=== PATIENT | male | born 1955 | race Two or more races ===

== ENCOUNTER 2019-11-13 17:18 | Emergency (ER) | payer OTHER ==
[2019-11-13 17:34] VITALS: BMI 25.0
--- NOTE | 2019-11-13 19:02 | PDOC ---
History of Present Illness - General Chief Complaint: Migraine Headache Stated Complaint: LEFT SIDE PAIN TO FACE/BLURRED VISION History Source: Patient Exam Limitations: No Limitations - History of Present Illness Initial Comments: 11/13/19 18:54 Patient is a 64-year-old male with history of chest pain, HLD complaining of headache x 1 week. States the pain started after taking the medication isosorbide for which he was precribed for his chest pain. Pain is on the left temporal area 6/10, throbbing, which radiates to the side of his face, with associated photophobia, no nausea vomiting. No history of headache. PMD: Dr. Cuadra PMHX: as above PSOCHX: occ wine, neg cig, no drug ALL: NKDA GENERAL/CONSTITUTIONAL: [No fever or chills. No weakness. No weight change.] HEAD, EYES, EARS, NOSE AND THROAT: [No change in vision. No ear pain or discharge. No sore throat.] CARDIOVASCULAR: [No chest pain or shortness of breath.] RESPIRATORY: [No cough, wheezing, or hemoptysis.] GASTROINTESTINAL: [No nausea, vomiting, diarrhea or constipation. No rectal bleeding.] GENITOURINARY: [No dysuria, frequency, or change in urination.] MUSCULOSKELETAL: [No joint or muscle swelling or pain. No neck or back pain.] SKIN AND BREASTS: [No rash or easy bruising.] NEUROLOGIC: [(+) headache, (-) vertigo, loss of consciousness, or loss of sensation.] PSYCHIATRIC: [No depression or anxiety.] ENDOCRINE: [No increased thirst. No abnormal weight change.] HEMATOLOGIC/LYMPHATIC: [No anemia, easy bleeding, or history of blood clots.] ALLERGIC/IMMUNOLOGIC: [No hives or skin allergy. No latex allergy.] GENERAL: [The patient is awake, alert, and fully oriented, in no acute distress. ] HEAD: [Normal with no signs of trauma.] EYES: [Pupils equal, round and reactive to light, extraocular movements intact, sclera anicteric, conjunctiva clear.] ENT: [Ears normal, nares patent, oropharynx clear without exudates. Moist mucous membranes.] NECK: [Normal range of motion, supple without lymphadenopathy, JVD, or masses.] LUNGS: [Breath sounds equal, clear to auscultation bilaterally. No wheezes, and no crackles.] HEART: [Regular rate and rhythm, normal S1 and S2 without murmur, rub.] ABDOMEN: [Soft, nontender, normoactive bowel sounds. No guarding, no rebound. No masses.] EXTREMITIES: [Normal range of motion, no edema. No clubbing or cyanosis. No cords, erythema, or tenderness.] NEUROLOGICAL: [Cranial nerves II through XII grossly intact. Normal speech, normal gait, (-) nystagmus.] PSYCH: [Normal mood, normal affect.] SKIN: [Warm, Dry, normal turgor, no rashes or lesions noted.] Past History - Past Medical History Allergies/Adverse Reactions: Allergies Allergy/AdvReac Type Severity Reaction Status Date / Time No Known Allergies Allergy Verified 11/13/19 17:30 Home Medications: Ambulatory Orders Isosorbide Mononitrate [Imdur -] 30 mg PO DAILY 11/13/19 Nitroglycerin Sublingual [Nitrostat -] 0.4 mg SL PRN 11/13/19 - Psycho Social/Smoking Cessation Hx Smoking History: Never smoked Hx Alcohol Use: No Drug/Substance Use Hx: No *Physical Exam - Vital Signs Last Vital Signs Temp Pulse Resp BP Pulse Ox 98 F 78 16 114/76 97 11/13/19 17:31 11/13/19 17:31 11/13/19 17:31 11/13/19 17:31 11/13/19 17:31 Medical Decision Making - Medical Decision Making 11/13/19 18:54 Patient is a 64-year-old male with history of chest pain, HLD complaining of headache x 1 week. States the pain started after taking the medication isosorbide for which he was precribed for his chest pain. Pain is on the left temporal area 6/10, throbbing, which radiates to the side of his face, with associated photophobia, no nausea vomiting. No history of headache. Headaches seem to be related to starting of isosorbide possibly due to the medication. Will get a head CT to rule out pathology. Patient declines any treatment for the headache. States he wanted to talk to his doctor tomorrow before he takes anything for the headache. 11/13/19 20:24 CT head is negative. Patient is in no acute distress currently, headache is resolved Recommended for the patient to do further testing like a CBC, ESR, CMP. However patient was not willing to do the testing. He therefore signed the AMA form knowing the risk of not having a diagnosis for his symptoms. Discharge - Discharge Information Problems reviewed: Yes Clinical Impression/Diagnosis: Headache Qualifiers: Headache type: unspecified Headache chronicity pattern: unspecified pattern Intractability: not intractable Qualified Code(s): R51 - Headache Condition: Stable Disposition: AGAINST MEDICAL ADVICE - Follow up/Referral Referrals: ON STAFF,NOT [Primary Care Provider] - - Patient Discharge Instructions Patient Printed Discharge Instructions: DI for Headache Additional Instructions: Your Discharge Instructions: You must call primary care physician within 24 hours to arrange follow-up. Return to the Emergency Department with any new, persistent or worsening symptoms, for fever, chills, SOB, dizziness or any other concerning changes that may occur. - Post Discharge Activity
--- NOTE | 2019-11-13 20:56 | PDOC ---
*Physical Exam - Vital Signs Last Vital Signs Temp Pulse Resp BP Pulse Ox 98 F 78 16 114/76 97 11/13/19 17:31 11/13/19 17:31 11/13/19 17:31 11/13/19 17:31 11/13/19 17:31 Medical Decision Making - Medical Decision Making 11/13/19 20:56 Patient seen by the advanced practice provider under my direct supervision. Ancillary testing reviewed as necessary. I agree with plan as outlined by the advanced practice provider. Discharge - Discharge Information Problems reviewed: Yes Clinical Impression/Diagnosis: Headache Qualifiers: Headache type: unspecified Headache chronicity pattern: unspecified pattern Intractability: not intractable Qualified Code(s): R51 - Headache Condition: Stable Disposition: HOME - Follow up/Referral Referrals: ON STAFF,NOT [Primary Care Provider] - - Patient Discharge Instructions Patient Printed Discharge Instructions: DI for Headache Additional Instructions: Your Discharge Instructions: You must call primary care physician within 24 hours to arrange follow-up. Return to the Emergency Department with any new, persistent or worsening symptoms, for fever, chills, SOB, dizziness or any other concerning changes that may occur. - Post Discharge Activity
[2019-11-13 21:45] VITALS: BP 114/73; PULSE 67; TEMP 97.4
== END 2019-11-13 21:45 | disposition home or self-care (01) ==
LOC: JER 17:18
DX: R51 Headache (principal); E78.5 Hyperlipidemia, unspecified; R07.9 Chest pain, unspecified
CPT/HCPCS: 70450-TC; 99281-25